=== PATIENT | male | born 1975 | race Caucasian/White ===

== ENCOUNTER 2017-05-30 08:46 | Day surgery (SDC) | payer OTHER ==
[2017-05-30] MEDS ORDERED: fentaNYL 100 MCG/2 ML SDV IV ONE (08:47)
[2017-05-30] MEDS ORDERED: Propofol 200 MG/20 ML SDV IV ONE (08:47)
[2017-05-30] MEDS ORDERED: Dexamethasone 4 MG/ML SDV IV ONE (08:47)
[2017-05-30] MEDS ORDERED: Ketorolac 30 MG/ML SDV IVPUSH ONE (08:47)
[2017-05-30] MEDS ORDERED: Midazolam 1 MG/ML 2 ML SDV IV ONE (08:47)
[2017-05-30] MEDS ORDERED: Ondansetron 4 MG/2 ML SDV IV ONE (08:47)
[2017-05-30] MEDS ORDERED: Lidocaine 2% 20 ML MDV INJECT ONE (08:47)
[2017-05-30] MEDS: Lactated Ringers 1,000 ML IV SCH (09:13)
--- NOTE | 2017-05-30 12:48 | OR ---
DATE: 05/30/2017 PREOPERATIVE DIAGNOSIS: Perirectal abscess, left buttock. POSTOPERATIVE DIAGNOSIS: Perirectal abscess, left buttock. PROCEDURES: Incision and drainage of perirectal abscess. ANESTHESIA: General. ESTIMATED BLOOD LOSS: None. SPECIMEN: None. INDICATION FOR PROCEDURE: This 41-year-old male has had an infected area in the left side of the buttocks near the anal opening for over the last week. He had a small incision and drainage performed in the emergency room; however, he still has about a 3 to 4 cm indurated area. This is consistent with a perirectal abscess. PROCEDURE IN DETAIL: After adequate preparation, full-thickness skin incision was made and carried down into the abscess cavity. There was some fluid and necrotic appearing tissue, however, most of this is probably drained with the prior I and D. The wound was irrigated and suctioned clean. Hemostasis was controlled using a Bovie, and the wound was packed open with a 2 x 2 sponge. [facility] /[id number]
== END 2017-05-30 11:30 | disposition home or self-care (01) ==
LOC: DL.SDS 08:46 → EDSTATUS 10:15 → DL.SDS 11:30
PROVIDERS: ATTEND Surgery
DX: K61.1 Rectal abscess (principal)
CPT/HCPCS: 46040; J1100; J1885; J2250; J2405; J2704; J3010; J7120